=== PATIENT | female | born 1940 | race Caucasian/White ===

== ENCOUNTER 2018-11-17 08:45 | Observation (INO) | payer MEDICARE, OTHER ==
[~2018-11-17 08:45] MED LIST: CEFAZOLIN 2 GM-D5W BAG** 2 GM/50 ML ML IV ONE; Lactated Ringers 1,000 ML IV ONE; Lactated Ringers 1,000 ML IV SCH
[2018-11-17] MEDS ORDERED: Lactated Ringers 1,000 ML IV ONE (09:29)
[2018-11-17] MEDS ORDERED: Sensorcaine 0.25% 10 ML ONE (09:29)
[2018-11-17] MEDS ORDERED: KEFZOL 1 GM ONE (09:29)
--- NOTE | 2018-11-17 09:36 | HP ---
DATE OF SURGERY: 11/17/2018 HISTORY OF PRESENT ILLNESS: The patient is a 77 year-old with history of hysterectomy in the past, history of abdominal wall bulge seems consistent with hernia that is increasing in size recently. She desires repair. PAST MEDICAL HISTORY: Atrial fibrillation. Hypothyroidism. Hypertension. Hypercholesterolemia. Heart disease as well. PAST SURGICAL HISTORY: Knee surgery in the past. He had some hemorrhoid surgery in the past. Upper abdominal surgery by Dr. Laurent in the past. MEDICATIONS: Furosemide, atenolol, lisinopril, Simvastatin, levothyroxine, Eliquis. ALLERGIES: NKDA. FAMILY HISTORY: Negative in regards to this problem. SOCIAL HISTORY: No smoking or alcohol abuse. REVIEW OF SYSTEMS: Twelve systems reviewed per admission assessment. No chest pain or palpitations other systems negative or noncontributory as above and per preadmission questionnaire. PHYSICAL EXAMINATION: GENERAL: No acute distress. HEENT: Sclerae nonicteric. NECK: No JVD. CHEST: Equal excursion, nonlabored breathing. CVS: Regular rate and rhythm. ABDOMEN: Soft. Abdominal wall bulge seems consistent with ventral hernia. EXTREMITIES: No significant edema. NEURO: Alert, oriented, moving extremities symmetrically. No gross motor deficits noted. IMPRESSION: Incarcerated ventral hernia likely with some preperitoneal fat or omentum. I feel the patient would benefit from repair. She was discussed the option of open versus laparoscopic assisted, possible open. I had a long discussion with the patient. I felt she would benefit from laparoscopic assisted possible open incarcerated ventral hernia repair with mesh. Risks and benefits explained in detail but not limited to bleeding or infection, risk of trocar injury or hernia, small risk of bowel bladder, blood vessel injury, small risk of adhesion, scar formation or obstruction. Risk of mesh infection possibly requiring removal, risk of hematoma or seroma formation, risk of ingrown hair or suture reaction in the skin incision possible need for open procedure, overall risk of hernia recurrence, general risk of aches, pains, burning or numbness possibly long-term or chronic in nature as well as general risk of anesthesia, deep venous thrombosis, pulmonary embolism, pneumonia, risk of cardiopulmonary event given her comorbidities. She also understands risk of recurrence as well as remote risk of mesh fracture or failure creating issues with the viscera or other structures possibly requiring other procedures but not limited to. She understands and agrees to the planned procedure, will proceed with laparoscopic assisted possible open incarcerated ventral hernia repair with mesh. She understands depending on pain control that she may spend the night or two or three days depending on pain control and when it is tolerable on the pain medicine then she could be discharged. She understands all the above but not limited to, will proceed with laparoscopic assisted possible open incarcerated ventral hernia repair with mesh.
[2018-11-17] MEDS ORDERED: SUBLIMAZE 100 MCG/2 ML ONE (16:54)
[2018-11-17] MEDS ORDERED: DILAUDID 2 MG INJECTION ONE (17:13)
[2018-11-17 17:49] LABS: Appearance CLEAR (CLEAR); Bacteria RARE /HPF (NEGATIVE); Bilirubin NEGATIVE (NEGATIVE); Blood SMALL Ery/ul (0-5); Epithelial Cells FEW /HPF (FEW); Glucose NEGATIVE (NEGATIVE); Hyaline Casts 0-2 /LPF (0-2); Ketones NEGATIVE (NEGATIVE); Leukocyte Esterase NEGATIVE (NEGATIVE); Mucus SLIGHT /HPF (NEGATIVE); Nitrite NEGATIVE (NEGATIVE); Protein,Urine Dip NEGATIVE (Negative); Specific Gravity 1.012 (1.005-1.025); Urobilinogen NEGATIVE mg/dL (0-1)
[2018-11-17] MEDS ORDERED: Xylocaine-Mpf 2% 5 Ml Vial IJ ONE (17:51)
[2018-11-17] MEDS ORDERED: Quelicin Fliptop 200 MG/10 ML IV ONE (17:51)
[2018-11-17] MEDS ORDERED: SUBLIMAZE 100 MCG/2 ML IV ONE (17:51)
[2018-11-17] MEDS ORDERED: Decadron 4 MG INJ IV ONE (17:51)
[2018-11-17] MEDS ORDERED: ROBINUL IV ONE (17:51)
[2018-11-17] MEDS ORDERED: BRIDION 200MG/2ML IV ONE (17:51)
[2018-11-17] MEDS ORDERED: Zofran 4 MG/2 ML VIAL IV ONE (17:51)
[2018-11-17] MEDS ORDERED: Zemuron 100 MG/10 ML IV ONE (17:51)
[2018-11-17] MEDS ORDERED: DIPRIVAN 200 MG/20 ML IV ONE (17:51)
[2018-11-17] MEDS: Zestril 20 MG PO SCH ×2 (18:08→19:08)
[2018-11-17] MEDS ORDERED: Sodium Chloride 0.9% 10 ML FLUSH Syringe IV PRN (18:12)
[2018-11-17] MEDS ORDERED: MORPHINE SULFATE 4 MG INJ IV PRN (18:17)
[2018-11-17] MEDS ORDERED: NORCO 5/325 MG PO PRN (18:18)
[2018-11-17] MEDS ORDERED: Zofran 4 MG/2 ML VIAL IV PRN (18:21)
[2018-11-17] MEDS ORDERED: D5W/0.45NS W/ 20mEq KCl 1000 ML 1,000 ML IV SCH (18:30)
[2018-11-17] MEDS: MORPHINE SULFATE 2 MG INJ IV PRN (21:27)
[2018-11-17] MEDS ORDERED: Zocor 10MG PO SCH (22:00)
[2018-11-17] MEDS: TENORMIN 50 MG PO SCH (22:25)
[2018-11-18] MEDS: MORPHINE SULFATE 2 MG INJ IV PRN ×2 (00:27→07:40)
--- NOTE | 2018-11-18 09:18 | OP ---
SURGERY DATE/TIME: 11/17/2018 1432 PREOPERATIVE DIAGNOSIS: Symptomatic incarcerated ventral hernia. POSTOPERATIVE DIAGNOSIS: Symptomatic incarcerated ventral hernia. PROCEDURES: 1) Laparoscopic lysis of extensive abdominal adhesions. 2) Laparoscopic repair of incarcerated ventral hernia with mesh. SURGEON: Dr. Madi Garza. ANESTHESIA: General. ESTIMATED BLOOD LOSS: Minimal. INDICATIONS: As noted above. Risks and benefits explained in detail and not limited to and consent obtained. DESCRIPTION OF PROCEDURE AND FINDINGS: The patient is taken to the operating room. General anesthesia induced. Abdomen prepped and draped in usual sterile fashion. A small stab wound made lateral to the defect mid abdomen. Fascia grasped pulled upwards. Veress needle inserted. However it did not appear to be able to easily pop through the peritoneum in this area. It was elected to go up to the left upper quadrant. A 5 mm port site wound. Port is going to be placed in this area. Fascia grasped pulled upwards. Veress needle inserted tested with saline. Pneumoperitoneum accomplished with opening pressure of 0 to 15. At this point the left mid abdomen 5 mm bladeless port and camera were inserted without difficulty. There was a small piece of omentum in the area but there was no evidence of any bowel or visceral issues. This adhesion had been taken down to allow for free access of the port. A 5 mm port was placed in the left upper quadrant. It did require placement of additional left upper quadrant 5 mm port to allow for easier dissection as well as left lower quadrant 5 mm port and later a 5 mm port on the right mid abdomen under direct vision of the camera. There was no evidence of any intra-abdominal injury secondary to trocar or Veress needle placement. The patient had extensive bowel adhesions up to the anterior midline with some incarcerated fat up in the hernia area. These adhesions were carefully taken down staying directly on the gallbladder wall with sharp dissection with laparoscopic león without any energy source, no energy source. Small oozing vessel on a piece of omentum well away from any viscera but 99.9% of the dissection accomplished with laparoscopic león without using any energy staying away from viscera. There was no evidence of any visceral issues. She had a lot of colon superiorly and small bowel more inferiorly. It took some time but carefully freeing all of these adhesions, this allowed access to the defect allowing the incarcerated preperitoneal fat to be reduced out of the defect. It should be noted there was a second much smaller ventral hernia that had some fat incarcerated much more cephalad. It was felt that should be just repaired with suture rather than massively increasing the size of mesh. The defect itself carefully marked with spinal needle and measured with adequate overlap in all directions. It was felt the most appropriate size is 11.[address] mesh with Echo not the wide version but the standard version with the coating. Four stay sutures were placed at four quadrants. At this point the two fascial defects were brought back to the midline prior to placing the mesh this was done with interrupted #1 PDS through a small 12 port that was going to be used to drop the mesh in. Just a little bit lateral to the hernia defect. Suture passer PDS was placed. Once this was accomplished the transfascial sutures were accomplished. The 11/12 port was placed. The mesh carefully rolled and dropped down in the abdomen without difficulty. The pressure had been down to 9 at this point to avoid any distortion of the abdominal wall. Transfascial sutures were closed with the suture passer used to grasp the balloon catheter and pulled it up through the mid portion of the hernia defect. The balloon is then inflated, flattened the mesh and 0 Ethibond transfascial four quadrant sutures on the mesh and then carefully pulled up through stab wounds and tied. Once this was accomplished, the capture tacks were then carefully placed about 2 cm apart around the edges with some SorbaFix absorbable tacks in between. The balloon was then carefully deflated and removed intact and passed off. The SorbaFix was then used to transfix the mesh closer to the hernia defect to reduce the space or seromal formation. It is lying nice and flat in a tension free manner. There had been no evidence of any issues with viscera other than waiting for CO2 tank inflation to become available as the tank ran out other than that down time there was no evidence of any issues with the bowel or viscera. Mesh lying flat in a tension free manner with the pressure down around 9 to avoid distortion of the abdominal wall. At this point pneumoperitoneum decompressed. Skin incision closed with 4-0 Vicryl. Pressure dressing left over the hernia defect to reduce the risk of seromal formation. The patient is given abdominal binder after anesthesia applied tap blocks.
[2018-11-18] MEDS ORDERED: ZYLOPRIM 100 MG PO SCH (10:00)
[2018-11-18] MEDS ORDERED: SYNTHROID 50 MCG PO SCH (10:00)
[2018-11-18] MEDS: TENORMIN 50 MG PO SCH (10:51)
[2018-11-18] MEDS: Zestril 20 MG PO SCH (10:52)
[2018-11-18 11:38] VITALS: BP 127/58; PULSE 65; O2SAT 97
== END 2018-11-18 11:50 | disposition home or self-care (01) ==
LOC: SDC 10:55 → MED SURG 10:55 → EDSTATUS 15:10 → MED SURG 17:50 → UNDOADMOB 17:50 → UNDODISOB 11-18 11:50
PROVIDERS: ADMIT Surgery; ATTEND Surgery
DX: K43.6 Other and unspecified ventral hernia with obstruction, without gangrene (principal); K66.0 Peritoneal adhesions (postprocedural) (postinfection); I10 Essential (primary) hypertension; E78.00 Pure hypercholesterolemia, unspecified; I48.91 Unspecified atrial fibrillation; E03.9 Hypothyroidism, unspecified; Z79.01 Long term (current) use of anticoagulants; Z79.899 Other long term (current) drug therapy
CPT/HCPCS: 49653; 64488; 76937; 81001; 87086; G0378; 99100; J0330; J0690; J1100; J1170; J2270; J2405; J2704; J3010; L0625; A9270-GY

== ENCOUNTER 2022-03-09 06:07 | Day surgery (SDC) | payer MEDICARE, OTHER ==
[~2022-03-09 06:07] MED LIST changes: -CEFAZOLIN 2 GM-D5W BAG** 2 GM/50 ML ML IV ONE; -Lactated Ringers 1,000 ML IV ONE
[2022-03-09] MEDS ORDERED: XYLOCAINE 1% HCL 20 ML MDV ONE (06:27)
[2022-03-09] MEDS ORDERED: Lactated Ringers 1,000 ML IV ONE ×2 (06:27→07:12)
[2022-03-09] MEDS ORDERED: Marcaine Mpf 0.5% Vial 30 Ml ONE (06:30)
[2022-03-09] MEDS ORDERED: CEFAZOLIN 2 GM-D5W BAG** 2 GM/50 ML ML IV ONE (07:15)
[2022-03-09] MEDS ORDERED: CEFAZOLIN 2 GM-D5W BAG** 2 GM/50 ML ML IV SCH (07:30)
[2022-03-09 07:57] LABS: ALBUMIN 4.3 g/dL (3.5-5.0); ANION GAP 14.8 MEQ/L (5-15); BILIRUBIN,TOTAL 1.1 mg/dL (0.2-1.3); Calcium 9.9 mg/dL (8.4-10.2); Creatinine 1 1.82 mg/dL (0.52-1.04); EST GLOMERULAR FILTRATION RATE 28.2 ML/MIN; Potassium 3.6 mmol/L (3.5-5.1); Total Protein 7.2 g/dL (6.3-8.2)
[2022-03-09] MEDS ORDERED: Versed 2 MG/2 ML Injection ONE (09:24)
[2022-03-09] MEDS ORDERED: DIPRIVAN 200 MG/20 ML IV ONE (09:24)
[2022-03-09] MEDS ORDERED: SUBLIMAZE 100 MCG/2 ML ONE (09:24)
[2022-03-09 11:19] VITALS: BP 144/88; PULSE 60; O2SAT 98
--- NOTE | 2022-03-09 11:25 | OP ---
SURGERY DATE/TIME: 03/09/2022 PREOPERATIVE DIAGNOSES: 1) Pain right foot. 2) Hammer toe right foot. 3) Painful digital contracture. 4) Dorsal foot wound. POSTOPERATIVE DIAGNOSES: 1) Pain right foot. 2) Hammer toe right foot. 3) Painful digital contracture. 4) Dorsal foot wound. PROCEDURE: Amputation second digit right foot. SURGEON: John Rea DPM. HOSIERY PAIRER: None. ANESTHESIA: Monitored anesthesia care with an intraoperative local. See injectables for details. HEMOSTASIS: Pressure dressing. ESTIMATED BLOOD LOSS: Less than 3 cc. MATERIALS: 4-0 Monocryl, 3-0 Nylon. INJECTABLES: 20 cc of 1:1 mixture of 1% lidocaine plain and 0.5% bupivacaine plain injected in a metatarsal block-type fashion. INDICATION FOR SURGERY: Tanya is a very pleasant 81-year-old who presented to my service for concerns of over a painful digital contracture. The contracture was extreme and there was an almost 90 degree elevation of the digit at the metatarsophalangeal joint with dorsiflexory contracture at the metatarsophalangeal joint as well as plantar flexor contracture at the proximal interphalangeal joint. For this reason this causes significant amount of pain with shoe gear and ambulation particularly as a result leading to ulceration of the digit at the proximal interphalangeal joint. At this time the patient is not a diabetic however options were discussed rather than doing a full reconstruction and due to patient factors, options were discussed and the patient opted to proceed with amputation of the digit due to the fact that she will be allowed immediate weight bearing following the procedure as well as quick recovery and back to her normal activities following the procedure. The patient understands all risks, complications and benefits of surgical intervention including but not limited to infection, hematoma, seroma, possibility of delayed skin healing or nonskin healing, possible need for surgical intervention at a later date. No guarantees were provided as to the outcome. Plenty of time was allowed for the patient to ask questions which were answered to the patient's apparent satisfaction. It is with that we decided to proceed. DESCRIPTION OF PROCEDURE AND FINDINGS: The patient is brought into the OR and placed and placed on the OR table in supine position. At this time monitored anesthesia care was administered until the patient was sedated. The patient's right lower extremity was then prepped and draped in the typical sterile fashion and lowered onto the surgical field. A 20 cc block of 1:1 mixture of 1% lidocaine plain and 0.5% bupivacaine plain was injected in a metatarsal block-type fashion. At this time attention was directed to the dorsal aspect of the metatarsophalangeal joint where an incision was carried down utilizing a 15 blade down the dorsal aspect of the metatarsal head and in a dorsal racket-type orientation disarticulating the second digit. Copious amounts of sterile saline were utilized to flush the surgical site. At this time the incision site was coapted utilizing 4-0 Monocryl in subcutaneous fashion in simple buried-type fashion and the skin was then coapted utilizing 3-0 Nylon in a horizontal mattress-type fashion. The patient was then dressed with a dressing consisting of Betadine, Adaptic, 4x4, Kerlix and DOUGLAS. The patient was then reversed from anesthesia and returned to the postoperative anesthesia care unit with vital signs stable and vascular status intact. The patient handled the anesthesia as well as the operation without significant complication. Postoperative orders as indicated in the patient's discharge chart.
== END 2022-03-09 11:10 | disposition home or self-care (01) ==
LOC: SDC 06:07
PROVIDERS: ATTEND Podiatrist Foot & Ankle Surgery
DX: M20.41 Other hammer toe(s) (acquired), right foot (principal); M79.671 Pain in right foot; L97.511 Non-pressure chronic ulcer of other part of right foot limited to breakdown of skin; M24.574 Contracture, right foot
CPT/HCPCS: 28820; 36415; 80053; 93005; 99100; J0690; J2250; J2704; J3010